=== PATIENT | male | born 1945 | race Hispanic/Latino ===

== ENCOUNTER → 2017-09-10 | Outpatient (CLI) | payer OTHER | END | disposition home or self-care (01) | LOC: RAH 09:28 | PROVIDERS: ATTEND Internal Medicine | DX: I35.0 Nonrheumatic aortic (valve) stenosis (principal); I10 Essential (primary) hypertension; F32.1 Major depressive disorder, single episode, moderate | CPT/HCPCS: 93306 ==

== ENCOUNTER → 2020-09-21 | Outpatient (CLI) | payer OTHER | END | disposition home or self-care (01) | LOC: SHCH 13:04 | PROVIDERS: ATTEND Internal Medicine Cardiovascular Disease | DX: I08.2 Rheumatic disorders of both aortic and tricuspid valves (principal); I10 Essential (primary) hypertension; E66.9 Obesity, unspecified; E78.5 Hyperlipidemia, unspecified; G20 Parkinson's disease | CPT/HCPCS: 93306; 93356 ==

== ENCOUNTER 2020-10-06 07:37 | Day surgery (SDC) | payer OTHER ==
[2020-10-01 11:39] LABS: BASOPHILS % (AUTO) 0.2 % (0.0-5.0); EOSINOPHILS % (AUTO) 3.8 % (0.0-8.0); HEMATOCRIT 34.6 % (42-54); LYMPHOCYTES % (AUTO) 23.4 % (21.0-51.0); MEAN CORPUSCULAR HEMOGLOBIN 27.4 pg (27.0-33.0); MEAN CORPUSCULAR HGB CONC 33.2 g/dL (32.0-36.0); MEAN CORPUSCULAR VOLUME 82.6 fL (79-99); MONOCYTES % (AUTO) 8.6 % (3.0-13.0); NEUTROPHILS % (AUTO) 63.6 % (40.0-77.0); PLATELET COUNT (AUTO) 220 K/uL (130-400); RED BLOOD CELL COUNT(AUTO) 4.19 MIL/uL (4.50-6.20); RED CELL DISTRIBUTION WIDTH 15.1 % (11.0-15.5); WHITE BLOOD COUNT (AUTO) 4.8 K/uL (4.8-10.8)
[2020-10-01 11:51] LABS: CREATININE 1.1 mg/dL (0.5-1.5); POTASSIUM 3.7 mmol/L (3.5-5.1)
[2020-10-01 11:52] LABS: INR 0.99 (0.85-1.15); PROTHROMBIN TIME 10.8 SEC (9.6-11.6)
[2020-10-01 11:54] LABS: PARTIAL THROMBOPLASTIN TIME 37.3 SEC (26.3-35.5)
[~2020-10-06] VITALS: Ht 177.8 cm; Wt 106.0 kg
[2020-10-06] VITALS (9 sets, daily range): BP systolic 115–147; BP diastolic 52–61
[~2020-10-06 07:37] MED LIST: CARB1TAB42 PO; CARBOXYMETHYLCELLULOSE OU; ENTA200T5 PO; LOSA100T58 PO; OXYB5TAB15 PO; PRAV40TA3 PO; RIVA4.6T TD; ROPI4TAB6 PO; SERT-440 PO; vitamin D3 PO
[2020-10-06] MEDS ORDERED: NICARDIPINE HCL 25 MG/10 ML ML IV ONE (08:57)
[2020-10-06] MEDS ORDERED: HEPARIN SODIUM 1000UNIT/ML 10ML VIAL ONE (08:57)
[2020-10-06] MEDS ORDERED: MIDAZOLAM HCL 1 MG/ML 2ML VIAL ONE (08:58)
[2020-10-06] MEDS ORDERED: LIDOCAINE HCL 400MG/20ML VIAL ONE (08:58)
[2020-10-06] MEDS ORDERED: FENTANYL CITRATE PF 50 MCG/1 ML 2ML VIAL ONE (08:58)
[2020-10-06] MEDS ORDERED: NITROGLYCERIN 2 MG/VIAL VIAL IV ONE (08:58)
[2020-10-06] MEDS ORDERED: IOHEXOL 350 MG/ML 100ML INFUS..BTL IV ONE (08:58)
[2020-10-06] MEDS ORDERED: HYDR25TA PO (09:09)
[2020-10-06] MEDS ORDERED: METO-408 PO (09:09)
[2020-10-06] MEDS ORDERED: SODIUM CHLORIDE 0.9% 1000ML 1,000 ML IV ONE (09:33)
[2020-10-06] MEDS ORDERED: IOHEXOL-350 50ML VIAL IV ONE (10:12)
== END 2020-10-06 14:50 | disposition home or self-care (01) ==
LOC: DAH 07:37
PROVIDERS: ATTEND Internal Medicine Cardiovascular Disease
DX: I35.0 Nonrheumatic aortic (valve) stenosis (principal); I25.10 Atherosclerotic heart disease of native coronary artery without angina pectoris; I10 Essential (primary) hypertension; E78.5 Hyperlipidemia, unspecified; G20 Parkinson's disease; Z79.899 Other long term (current) drug therapy; Z79.01 Long term (current) use of anticoagulants; Z98.890 Other specified postprocedural states; Z82.49 Family history of ischemic heart disease and other diseases of the circulatory system; Z80.8 Family history of malignant neoplasm of other organs or systems
CPT/HCPCS: 36415; 71045; 80048; 85025; 85610; 85730; 93005; 93454; A4215; A4216; A4221; A4222; A4223 ×3; A4606; A4663; C1894 ×3; J1644; J2250; J3010; J3490 ×2; J7030; Q9965; Q9967 ×2; 99156; 99157

== ENCOUNTER → 2020-11-22 | Outpatient (CLI) | payer OTHER ==
[~2020-11-22] MED LIST changes: +HYDR25TA PO; +IOHEXOL 350 MG/ML 100ML INFUS..BTL IV ONE; +METO-408 PO
== END | disposition home or self-care (01) ==
LOC: RAH 10:03
PROVIDERS: ATTEND Internal Medicine Cardiovascular Disease
DX: I35.0 Nonrheumatic aortic (valve) stenosis (principal); I70.0 Atherosclerosis of aorta
CPT/HCPCS: 74174; 75574; Q9967

== ENCOUNTER 2021-02-28 15:00 | Inpatient (IN) | payer OTHER ==
[~2021-02-28] VITALS: Ht 177.8 cm; Wt 110.3 kg
[~2021-02-28 15:00] MED LIST changes: -CARBOXYMETHYLCELLULOSE OU; -ENTA200T5 PO; -IOHEXOL 350 MG/ML 100ML INFUS..BTL IV ONE; -OXYB5TAB15 PO; -RIVA4.6T TD; -vitamin D3 PO
[2021-03-11 12:54] LABS: ABG BASE EXCESS 2.8 mmol/L (-2.0-3.0); ABG HCO3 27.2 mmol/L (21.0-28.0); ABG OXYGEN SATURATION 93.8 % (95.0-99.0); ABG PCO2 41 mmHg (35-48)
[2021-03-11 13:03] LABS: BASOPHILS % (AUTO) 0.4 % (0.0-5.0); EOSINOPHILS % (AUTO) 3.3 % (0.0-8.0); HEMATOCRIT 41.9 % (42-54); LYMPHOCYTES % (AUTO) 28.1 % (21.0-51.0); MEAN CORPUSCULAR HEMOGLOBIN 31.9 pg (27.0-33.0); MEAN CORPUSCULAR HGB CONC 35.3 g/dL (32.0-36.0); MEAN CORPUSCULAR VOLUME 90.3 fL (79-99); MONOCYTES % (AUTO) 8.5 % (3.0-13.0); NEUTROPHILS % (AUTO) 59.5 % (40.0-77.0); PLATELET COUNT (AUTO) 173 K/uL (130-400); RED BLOOD CELL COUNT(AUTO) 4.64 MIL/uL (4.50-6.20); RED CELL DISTRIBUTION WIDTH 13.8 % (11.0-15.5); WHITE BLOOD COUNT (AUTO) 4.8 K/uL (4.8-10.8)
[2021-03-11 13:16] LABS: INR 0.98 (0.85-1.15); PROTHROMBIN TIME 10.7 SEC (9.6-11.6)
[2021-03-11 13:18] LABS: PARTIAL THROMBOPLASTIN TIME 37.2 SEC (26.3-35.5)
[2021-03-11 13:35] LABS: HEMOGLOBIN A1C 5.8 % (4.0-6.0)
[2021-03-11 18:20] VITALS: BP 160/74
[2021-03-11] MEDS ORDERED: MEMA10TA55 PO (18:42)
[2021-03-11] MEDS ORDERED: FOLI1 PO (18:42)
[2021-03-11] MEDS ORDERED: CYAN-52 PO (18:42)
[2021-03-14] VITALS (16 sets, daily range): BP systolic 98–195; BP diastolic 42–78
[2021-03-14] MEDS ORDERED: NOREPINEPHRINE BITARTRATE 8 MG in DEXTROSE 5%-WATER 250 ML IV PRN (08:30)
[2021-03-14] MEDS ORDERED: AMINOCAPROIC ACID 5,000MG VIAL 15,000 MG in 0.9% NACL 500ML IV.SOLN 420 ML IV PRN (08:30)
[2021-03-14] MEDS ORDERED: EPINEPHRINE PF 1MG AMP 10 MG in 0.9% NACL 250ML 240 ML IV PRN (08:30)
[2021-03-14] MEDS ORDERED: LACTATED RINGERS 1000ML 1,000 ML IV ONE (10:46)
[2021-03-14] MEDS ORDERED: CEFAZOLIN SODIUM 1 GM VIAL ONE ×3 (10:46→19:29)
[2021-03-14] MEDS ORDERED: NITROGLYCERIN 50MG/D5W 250ML 1 BOT ONE (11:01)
[2021-03-14] MEDS ORDERED: METOPROLOL TARTRATE 25 MG TAB ONE (11:25)
[2021-03-14] MEDS: CEFAZOLIN SODIUM 1 GM VIAL IVP ONE ×2 (12:00→12:20)
[2021-03-14] MEDS ORDERED: AMINOCAPROIC ACID 5,000MG VIAL ONE (12:17)
[2021-03-14] MEDS ORDERED: PROTAMINE SULFATE 10 MG/ML 25ML VIAL IV ONE ×2 (12:17→15:39)
[2021-03-14] MEDS ORDERED: NOREPINEPHRINE BITARTRATE 1 MG/1 ML ML IV ONE (12:17)
[2021-03-14] MEDS ORDERED: EPINEPHRINE PF 1MG AMP ONE (12:17)
[2021-03-14] MEDS ORDERED: ESMOLOL HCL 10 MG/ML 10 ML VIAL ONE (12:17)
[2021-03-14] MEDS ORDERED: HEPARIN 10,000 UNIT/10ML (1,000 UNIT/ML) VIAL ONE (12:17)
[2021-03-14] MEDS ORDERED: LIDOCAINE PF 100MG/5ML (2%) SYRINGE 5ML ONE (12:17)
[2021-03-14] MEDS ORDERED: SODIUM BICARB 50MEQ 50ML VIAL 150 ML ONE (12:17)
[2021-03-14] MEDS ORDERED: FENTANYL CITRATE PF 50 MCG/1 ML 20ML VIAL IJ ONE (12:17)
[2021-03-14] MEDS ORDERED: MIDAZOLAM HCL 1 MG/ML 2ML VIAL ONE ×2 (12:18→15:00)
[2021-03-14] MEDS ORDERED: ROCURONIUM 10MG/1ML SYR 10 MG/ML ML ONE (12:18)
[2021-03-14] MEDS ORDERED: PROPOFOL 10 MG/ML 20ML VIAL IV ONE (12:18)
[2021-03-14] MEDS ORDERED: KETAMINE 50MG/ML SYRINGE 50 MG/ML DISP.SYRIN IV ONE (12:19)
[2021-03-14] MEDS ORDERED: DELNIDO FORMULA 2 BAG IV ONE (12:46)
[2021-03-14 13:24] LABS: ABG BASE EXCESS 0.4 mmol/L (-2.0-3.0); ABG HCO3 24.5 mmol/L (21.0-28.0); ABG OXYGEN SATURATION 99.6 % (95.0-99.0); ABG PCO2 38 mmHg (35-48)
[2021-03-14] MEDS ORDERED: PHENYLEPHRINE HCL 10 MG/ML 1ML VIAL IV ONE (14:00)
[2021-03-14] MEDS ORDERED: SODIUM BICARB 8.4% 50ML SYRINGE IVP ONE (14:00)
[2021-03-14] MEDS ORDERED: CACL 1GM SYG IVP ONE (14:00)
[2021-03-14] MEDS ORDERED: HEPARIN 10,000 UNIT/10ML (1,000 UNIT/ML) VIAL IV ONE (14:00)
[2021-03-14] MEDS ORDERED: AMINOCAPROIC ACID 5,000MG VIAL IV ONE (14:00)
[2021-03-14] MEDS ORDERED: LIDOCAINE PF 100MG/5ML (2%) SYRINGE 5ML IVP ONE (14:00)
[2021-03-14] MEDS ORDERED: ALBUMIN (HUMAN) 25% 50 ML IV ONE (14:00)
[2021-03-14] MEDS ORDERED: MANNITOL 25% 50ML VIAL IV ONE (14:00)
[2021-03-14] MEDS ORDERED: MAGNESIUM SULFATE 1 GM/2 ML VIAL IM ONE (14:00)
[2021-03-14] MEDS ORDERED: ROPIVACAINE 0.2% 2MG/ML 100ML VIAL IJ ONE (14:00)
[2021-03-14 14:03] LABS: ABG BASE EXCESS -2.9 mmol/L (-2.0-3.0); ABG HCO3 22.2 mmol/L (21.0-28.0); ABG OXYGEN SATURATION 98.8 % (95.0-99.0); ABG PCO2 40 mmHg (35-48)
[2021-03-14] MEDS ORDERED: KETAMINE HCL 100 MG/ML 5ML VIAL IJ ONE (14:03)
[2021-03-14] MEDS ORDERED: ROPIVACAINE 0.5% 5MG/ML 30ML IJ ONE (14:08)
[2021-03-14 14:36] LABS: ABG BASE EXCESS -4.6 mmol/L (-2.0-3.0); ABG HCO3 20.2 mmol/L (21.0-28.0); ABG OXYGEN SATURATION 98.1 % (95.0-99.0); ABG PCO2 37 mmHg (35-48)
[2021-03-14 15:20] LABS: ABG BASE EXCESS 0.4 mmol/L (-2.0-3.0); ABG HCO3 24.8 mmol/L (21.0-28.0); ABG OXYGEN SATURATION 97.2 % (95.0-99.0); ABG PCO2 39 mmHg (35-48)
[2021-03-14] MEDS ORDERED: ALBUMIN (HUMAN) 5% 250 ML IV PRN (15:30)
[2021-03-14] MEDS ORDERED: POTASSIUM PHOS 15 mMOL+NS250ML 250 ML IV PRN (15:30)
[2021-03-14] MEDS ORDERED: MAGNESIUM 2GM PREMIX 50ML 50 ML IV PRN (15:30)
[2021-03-14] MEDS ORDERED: EPINEPHRINE PF 1MG AMP 10 MG in DEXTROSE 5%-WATER 250 ML IV PRN (15:30)
[2021-03-14] MEDS ORDERED: 0.9% NACL 500ML IV.SOLN 500 ML IV SCH (15:30)
[2021-03-14] MEDS ORDERED: INSULIN REGULAR, HUMAN 3ML 100 UNIT in 0.9%NACL 100ML 99 ML IV SCH ×2 (15:30)
[2021-03-14] MEDS ORDERED: ACETAMINOPHEN 650 MG SUPPOSITORY RC PRN (15:30)
[2021-03-14] MEDS ORDERED: DEXTROSE 50%-WATER 50 ML DISP.SYRIN IV PRN (15:30)
[2021-03-14] MEDS ORDERED: PROPOFOL 1000 MG/100 ML 100 ML IV PRN (15:30)
[2021-03-14] MEDS ORDERED: ONDANSETRON 4MG INJ IV PRN (15:30)
[2021-03-14] MEDS ORDERED: 0.9%NACL 10ML VIAL IVP PRN (15:30)
[2021-03-14] MEDS ORDERED: NITROGLYCERIN 50MG/D5W 250ML 250 BOT IV SCH (15:30)
[2021-03-14] MEDS ORDERED: GLUCAGON 1MG KIT 1 MG ML IM PRN (15:30)
[2021-03-14] MEDS ORDERED: 0.9%NACL 1000ML 1,000 ML IV SCH (15:30)
[2021-03-14] MEDS ORDERED: NOREPINEPHRIN 4MG/NS 250ML 250 ML IV PRN (15:30)
[2021-03-14] MEDS ORDERED: AMINOCAPROIC ACID 5,000MG VIAL 15,000 MG in 0.9% NACL 250ML 250 ML IV SCH (15:30)
[2021-03-14] MEDS ORDERED: MORPHINE 2 MG SYG IV PRN ×2 (15:30)
[2021-03-14 16:07] LABS: HEMATOCRIT 32.1 % (42-54); MEAN CORPUSCULAR HEMOGLOBIN 32.2 pg (27.0-33.0); MEAN CORPUSCULAR HGB CONC 35.2 g/dL (32.0-36.0); MEAN CORPUSCULAR VOLUME 91.5 fL (79-99); RED BLOOD CELL COUNT(AUTO) 3.51 MIL/uL (4.50-6.20); RED CELL DISTRIBUTION WIDTH 13.7 % (11.0-15.5); WHITE BLOOD COUNT (AUTO) 13.5 K/uL (4.8-10.8)
[2021-03-14 16:13] LABS: ABG BASE EXCESS -3.4 mmol/L (-2.0-3.0); ABG HCO3 22.6 mmol/L (21.0-28.0); ABG OXYGEN SATURATION 94.4 % (95.0-99.0); ABG PCO2 45 mmHg (35-48)
[2021-03-14 16:20] LABS: INR 1.18 (0.85-1.15); PROTHROMBIN TIME 12.7 SEC (9.6-11.6)
[2021-03-14 16:22] LABS: CREATININE 1.3 mg/dL (0.5-1.5); MAGNESIUM 2.5 mg/dL (1.80-2.40); PARTIAL THROMBOPLASTIN TIME 34.7 SEC (26.3-35.5); PHOSPHORUS 4.3 mg/dL (2.5-4.9); POTASSIUM 3.3 mmol/L (3.5-5.1)
[2021-03-14] MEDS: POTASSIUM CHLORIDE 20MEQ/100ML 100 ML IV PRN ×2 (16:22→21:00)
[2021-03-14] MEDS: SODIUM BICARB 50MEQ 50ML VIAL IV PRN ×5 (16:57→22:32)
[2021-03-14] MEDS: 0.2% ROPIVACAINE 600ML Q-PUMP MISC SCH (17:07)
[2021-03-14 17:15] LABS: ABG BASE EXCESS 1.9 mmol/L (-2.0-3.0); ABG HCO3 27.4 mmol/L (21.0-28.0); ABG OXYGEN SATURATION 93.9 % (95.0-99.0); ABG PCO2 47 mmHg (35-48)
[2021-03-14] MEDS: CALCIUM GLUC 1GM 1 GM in 0.9%NACL 50ML 50 ML IV PRN ×3 (18:08→22:32)
[2021-03-14 18:22] LABS: ABG BASE EXCESS -2.3 mmol/L (-2.0-3.0); ABG HCO3 23.2 mmol/L (21.0-28.0); ABG PCO2 43 mmHg (35-48)
[2021-03-14 19:32] LABS: ABG BASE EXCESS -2.1 mmol/L (-2.0-3.0); ABG HCO3 23.1 mmol/L (21.0-28.0); ABG OXYGEN SATURATION 97.2 % (95.0-99.0); ABG PCO2 41 mmHg (35-48)
[2021-03-14] MEDS ORDERED: CALCIUM GLUC 1GM/10ML VIAL ONE ×3 (19:50→22:29)
[2021-03-14] MEDS: CEFAZOLIN SODIUM 1 GM VIAL IV SCH (20:18)
[2021-03-14 20:24] LABS: ABG HCO3 22.6 mmol/L (21.0-28.0); ABG OXYGEN SATURATION 97.1 % (95.0-99.0); ABG PCO2 38 mmHg (35-48)
[2021-03-14 20:41] LABS: ABG HCO3 23.1 mmol/L (21.0-28.0); ABG OXYGEN SATURATION 96.8 % (95.0-99.0); ABG PCO2 37 mmHg (35-48)
[2021-03-14] MEDS: FAMOTIDINE 20MG VIAL IV SCH (21:03)
[2021-03-14 22:22] LABS: ABG BASE EXCESS -1.8 mmol/L (-2.0-3.0); ABG OXYGEN SATURATION 96.2 % (95.0-99.0); ABG PCO2 39 mmHg (35-48)
[2021-03-14] MEDS: ATORVASTATIN 10 MG TABLET PO SCH (22:23)
[2021-03-14] MEDS: MEMANTINE HCL 5 MG TABLET PO SCH (22:24)
[2021-03-14] MEDS: TRAMADOL HCL 50 MG TABLET PO PRN (22:40)
[2021-03-15] VITALS (25 sets, daily range): BP systolic 93–269; BP diastolic 44–268
[2021-03-15 03:47] LABS: ABG BASE EXCESS 3.6 mmol/L (-2.0-3.0); ABG HCO3 27.3 mmol/L (21.0-28.0); ABG OXYGEN SATURATION 94.8 % (95.0-99.0); ABG PCO2 38 mmHg (35-48)
[2021-03-15] MEDS ORDERED: CALCIUM GLUC 1GM/10ML VIAL ONE (03:50)
[2021-03-15] MEDS: CEFAZOLIN SODIUM 1 GM VIAL IV SCH ×2 (03:53→13:09)
[2021-03-15] MEDS: CALCIUM GLUC 1GM 1 GM in 0.9%NACL 50ML 50 ML IV PRN (03:53)
[2021-03-15 04:04] LABS: HEMATOCRIT 31.1 % (42-54); MEAN CORPUSCULAR HEMOGLOBIN 32.3 pg (27.0-33.0); MEAN CORPUSCULAR VOLUME 92.3 fL (79-99); RED BLOOD CELL COUNT(AUTO) 3.37 MIL/uL (4.50-6.20); RED CELL DISTRIBUTION WIDTH 14.3 % (11.0-15.5); WHITE BLOOD COUNT (AUTO) 9.5 K/uL (4.8-10.8)
[2021-03-15 04:23] LABS: CREATININE 1.8 mg/dL (0.5-1.5); MAGNESIUM 2.1 mg/dL (1.80-2.40); PHOSPHORUS 3.9 mg/dL (2.5-4.9); POTASSIUM 4.2 mmol/L (3.5-5.1)
[2021-03-15] MEDS: FAMOTIDINE 20MG VIAL IV SCH ×2 (07:41→20:42)
[2021-03-15] MEDS: SERTRALINE HCL 50 MG TABLET PO SCH (07:41)
[2021-03-15] MEDS: TRAMADOL HCL 50 MG TABLET PO PRN ×3 (07:41→17:56)
[2021-03-15] MEDS: CARBIDOPA/LEVODOPA ER 50-200 1 EACH TABLET.ER PO SCH ×3 (07:51→20:43)
[2021-03-15] MEDS: ASPIRIN 81MG CHEW TAB PO SCH (13:00)
[2021-03-15] MEDS ORDERED: ASPIRIN 81MG CHEW TAB ONE (13:01)
[2021-03-15] MEDS: FOLIC ACID 1 MG TABLET PO SCH (13:07)
[2021-03-15] MEDS: 0.2% ROPIVACAINE 600ML Q-PUMP MISC SCH (15:00)
[2021-03-15] MEDS: FUROSEMIDE 20MG VIAL IV SCH (16:53)
[2021-03-15] MEDS: MEMANTINE HCL 5 MG TABLET PO SCH (20:42)
[2021-03-15] MEDS: ATORVASTATIN 10 MG TABLET PO SCH (20:45)
[2021-03-16] VITALS (43 sets, daily range): BP systolic 84–160; BP diastolic 38–96
[2021-03-16] MEDS: ACETAMINOPHEN 325 MG TAB PO PRN ×2 (01:08→21:21)
[2021-03-16] MEDS: CARBIDOPA/LEVODOPA ER 50-200 1 EACH TABLET.ER PO SCH ×4 (01:08→22:16)
[2021-03-16] MEDS: TRAMADOL HCL 50 MG TABLET PO PRN ×2 (02:12→12:16)
[2021-03-16] MEDS: FUROSEMIDE 20MG VIAL IV SCH (04:35)
[2021-03-16 05:18] LABS: HEMATOCRIT 30.2 % (42-54); MEAN CORPUSCULAR HEMOGLOBIN 32.2 pg (27.0-33.0); MEAN CORPUSCULAR HGB CONC 34.1 g/dL (32.0-36.0); MEAN CORPUSCULAR VOLUME 94.4 fL (79-99); RED BLOOD CELL COUNT(AUTO) 3.2 MIL/uL (4.50-6.20); RED CELL DISTRIBUTION WIDTH 14.1 % (11.0-15.5); WHITE BLOOD COUNT (AUTO) 9.4 K/uL (4.8-10.8)
[2021-03-16 05:28] LABS: CREATININE 1.5 mg/dL (0.5-1.5); POTASSIUM 3.9 mmol/L (3.5-5.1)
[2021-03-16] MEDS: ASPIRIN 81MG CHEW TAB PO SCH (08:06)
[2021-03-16] MEDS: SERTRALINE HCL 50 MG TABLET PO SCH (08:07)
[2021-03-16] MEDS: FAMOTIDINE 20MG VIAL IV SCH ×2 (08:07→21:21)
[2021-03-16] MEDS: FUROSEMIDE 20 MG TABLET PO SCH ×3 (09:40→21:21)
[2021-03-16] MEDS: FOLIC ACID 1 MG TABLET PO SCH (11:06)
[2021-03-16] MEDS: ATORVASTATIN 10 MG TABLET PO SCH (21:21)
[2021-03-16] MEDS: MEMANTINE HCL 5 MG TABLET PO SCH (21:21)
[2021-03-16 21:48] LABS: MAGNESIUM 2.2 mg/dL (1.80-2.40); PHOSPHORUS 3.4 mg/dL (2.5-4.9); POTASSIUM 3.8 mmol/L (3.5-5.1)
[2021-03-16] MEDS ORDERED: CALCIUM GLUC 1GM/10ML VIAL ONE (22:14)
[2021-03-16] MEDS ORDERED: KCL 20 MEQ ERTAB PO ONE (22:14)
[2021-03-16] MEDS: CALCIUM GLUC 1GM 1 GM in 0.9%NACL 50ML 50 ML IV PRN (22:17)
[2021-03-16] MEDS ORDERED: KCL 20 MEQ ERTAB PO PRN (22:30)
[2021-03-16] MEDS ORDERED: POTASSIUM CHLORIDE 10% ELIXIR 20 MEQ/15 ML UDCUP PO PRN (22:30)
[2021-03-17 00:02] VITALS: BP 123/68
[2021-03-17] MEDS ORDERED: AMIODARONE 900MG VIAL IV ONE (00:17)
[2021-03-17] MEDS ORDERED: AMIODARONE 150MG VIAL ONE (00:17)
[2021-03-17] MEDS ORDERED: DEXTROSE 5%-WATER 500 ML IV ONE (00:19)
[2021-03-17] MEDS ORDERED: AMIODARONE 900MG VIAL 360 MG in DEXTROSE 5%-WATER 200 ML IV SCH (00:30)
[2021-03-17] MEDS ORDERED: AMIODARONE 900MG VIAL 150 MG in DEXTROSE 5%-WATER 100 ML IV SCH (00:30)
[2021-03-17] MEDS: CARBIDOPA/LEVODOPA ER 50-200 1 EACH TABLET.ER PO SCH ×4 (03:00→20:29)
[2021-03-17 03:54] LABS: HEMATOCRIT 27.9 % (42-54); MEAN CORPUSCULAR HEMOGLOBIN 32.6 pg (27.0-33.0); MEAN CORPUSCULAR HGB CONC 34.1 g/dL (32.0-36.0); MEAN CORPUSCULAR VOLUME 95.9 fL (79-99); RED BLOOD CELL COUNT(AUTO) 2.91 MIL/uL (4.50-6.20); RED CELL DISTRIBUTION WIDTH 13.8 % (11.0-15.5); WHITE BLOOD COUNT (AUTO) 8.5 K/uL (4.8-10.8)
[2021-03-17 04:02] VITALS: BP 97/50
[2021-03-17 04:08] LABS: CREATININE 1.4 mg/dL (0.5-1.5); POTASSIUM 3.8 mmol/L (3.5-5.1)
[2021-03-17 06:02] VITALS: BP 107/46
[2021-03-17] MEDS: AMIODARONE 900MG VIAL 540 MG in DEXTROSE 5%-WATER 300 ML IV SCH (06:47)
[2021-03-17 07:28] VITALS: BP 94/51
[2021-03-17] MEDS: ASPIRIN 81MG CHEW TAB PO SCH (07:55)
[2021-03-17] MEDS: FUROSEMIDE 20 MG TABLET PO SCH ×3 (07:55→20:28)
[2021-03-17] MEDS: SERTRALINE HCL 50 MG TABLET PO SCH (07:56)
[2021-03-17] MEDS: FAMOTIDINE 20MG VIAL IV SCH ×2 (07:56→20:28)
[2021-03-17] MEDS ORDERED: FUROSEMIDE 20 MG TABLET PO SCH (09:00)
[2021-03-17 11:40] VITALS: BP 102/49
[2021-03-17] MEDS: FOLIC ACID 1 MG TABLET PO SCH (13:16)
[2021-03-17] MEDS: MEMANTINE HCL 5 MG TABLET PO SCH (20:29)
[2021-03-17] MEDS: ATORVASTATIN 10 MG TABLET PO SCH (20:29)
[2021-03-17 23:37] VITALS: BP 123/50
[2021-03-18] MEDS: AMIODARONE 900MG VIAL 540 MG in DEXTROSE 5%-WATER 300 ML IV SCH (01:17)
[2021-03-18] MEDS: CARBIDOPA/LEVODOPA ER 50-200 1 EACH TABLET.ER PO SCH ×4 (02:56→20:00)
[2021-03-18 04:04] VITALS: BP 145/63
[2021-03-18 04:12] LABS: HEMATOCRIT 29.5 % (42-54); MEAN CORPUSCULAR HEMOGLOBIN 32.5 pg (27.0-33.0); MEAN CORPUSCULAR HGB CONC 34.2 g/dL (32.0-36.0); MEAN CORPUSCULAR VOLUME 94.9 fL (79-99); RED BLOOD CELL COUNT(AUTO) 3.11 MIL/uL (4.50-6.20); RED CELL DISTRIBUTION WIDTH 13.6 % (11.0-15.5); WHITE BLOOD COUNT (AUTO) 7.9 K/uL (4.8-10.8)
[2021-03-18 04:30] LABS: CREATININE 1.3 mg/dL (0.5-1.5); POTASSIUM 3.7 mmol/L (3.5-5.1)
[2021-03-18 08:30] VITALS: BP 135/66
[2021-03-18] MEDS: ASPIRIN 81MG CHEW TAB PO SCH (08:37)
[2021-03-18] MEDS: SERTRALINE HCL 50 MG TABLET PO SCH (08:37)
[2021-03-18] MEDS: FAMOTIDINE 20MG VIAL IV SCH ×2 (08:38→21:00)
[2021-03-18] MEDS: FUROSEMIDE 20 MG TABLET PO SCH ×3 (08:38→21:00)
[2021-03-18] MEDS ORDERED: AMIODARONE 200 MG TABLET PO ONE (09:30)
[2021-03-18] MEDS: AMIODARONE 200 MG TABLET PO SCH ×2 (10:19→21:00)
[2021-03-18 11:35] VITALS: BP 121/57
[2021-03-18] MEDS: FOLIC ACID 1 MG TABLET PO SCH (13:23)
[2021-03-18] MEDS ORDERED: OXYB5TAB15 PO (13:45)
[2021-03-18 15:56] VITALS: BP 134/58
[2021-03-18] MEDS: ATORVASTATIN 10 MG TABLET PO SCH (21:00)
[2021-03-18] MEDS: MEMANTINE HCL 5 MG TABLET PO SCH (21:00)
== END 2021-03-18 23:30 | DRG 219 ==
LOC: DAHIP 03-14 10:12 → 2CV 03-14 15:11 → 2CH 03-15 06:35 → 2DH 03-17 06:48
PROVIDERS: ADMIT Thoracic Surgery (Cardiothoracic Vascular Surgery); ATTEND Thoracic Surgery (Cardiothoracic Vascular Surgery)
PROC: 5A1221Z Performance of Cardiac Output, Continuous (ICD-10-PCS; 2021-03-14)
PROC: B24BZZ4 Ultrasonography of Heart with Aorta, Transesophageal (ICD-10-PCS; 2021-03-14)
PROC: 02RF08Z Replacement of Aortic Valve with Zooplastic Tissue, Open Approach (ICD-10-PCS; principal; 2021-03-14 11:00)
DX: I35.2 Nonrheumatic aortic (valve) stenosis with insufficiency (principal); I50.33 Acute on chronic diastolic (congestive) heart failure; D62 Acute posthemorrhagic anemia; G20 Parkinson's disease; I25.10 Atherosclerotic heart disease of native coronary artery without angina pectoris; E78.5 Hyperlipidemia, unspecified; E78.00 Pure hypercholesterolemia, unspecified; Z20.822 Contact with and (suspected) exposure to COVID-19; I48.91 Unspecified atrial fibrillation; Z79.82 Long term (current) use of aspirin; Z79.899 Other long term (current) drug therapy; Z99.3 Dependence on wheelchair; Z88.8 Allergy status to other drugs, medicaments and biological substances; Z80.0 Family history of malignant neoplasm of digestive organs; Z82.49 Family history of ischemic heart disease and other diseases of the circulatory system; I11.0 Hypertensive heart disease with heart failure
CPT/HCPCS: 36415; 36600; 71045; 71046; 80048; 80061; 82330; 82435; 82803; 82947; 82948; 83036; 83605; 83735; 84100; 84132; 84295; 85018; 85025; 85027; 85347; 85610; 85730; 86850; 86900; 86901; 86923; 87635; 88305; 88311; 93005; 93313; 93318; 93880; 94002; 94010; 94150; 97039; A4357; A7048; G0378; J0171; J0282; J0610; J0690; J1644; J1815; J1940; J2001; J2150; J2250; J2370; J2405; J2704; J2720; J2795; J3010; J3475; J3480; J3490; J7030; J7040; J7060; J7120; P9047

== ENCOUNTER 2021-12-08 17:15 | Emergency (ER) | payer OTHER ==
[~2021-12-08] VITALS: Ht 172.7 cm; Wt 107.0 kg
[~2021-12-08 17:15] MED LIST changes: +CYAN-52 PO; +FOLI1 PO; +MEMA10TA55 PO; +OXYB5TAB15 PO
[2021-12-08] MEDS ORDERED: CEFTRIAXONE 1G VIAL IVP ONE (19:00)
[2021-12-08 19:08] LABS: BASOPHILS % (AUTO) 0.4 % (0.0-5.0); EOSINOPHILS % (AUTO) 4.5 % (0.0-8.0); HEMATOCRIT 37.3 % (42-54); LYMPHOCYTES % (AUTO) 25.2 % (21.0-51.0); MEAN CORPUSCULAR HEMOGLOBIN 31.4 pg (27.0-33.0); MEAN CORPUSCULAR HGB CONC 35.1 g/dL (32.0-36.0); MEAN CORPUSCULAR VOLUME 89.4 fL (79-99); MONOCYTES % (AUTO) 9.2 % (3.0-13.0); NEUTROPHILS % (AUTO) 60.3 % (40.0-77.0); PLATELET COUNT (AUTO) 175 K/uL (130-400); RED BLOOD CELL COUNT(AUTO) 4.17 MIL/uL (4.50-6.20); RED CELL DISTRIBUTION WIDTH 14.3 % (11.0-15.5); WHITE BLOOD COUNT (AUTO) 4.7 K/uL (4.8-10.8)
[2021-12-08 19:13] LABS: CREATININE 1.2 mg/dL (0.5-1.5); POTASSIUM 3.9 mmol/L (3.5-5.1)
[2021-12-08 19:17] LABS: ALBUMIN 3.5 g/dL (3.5-5.0); TOTAL PROTEIN, SERUM 6.8 g/dL (6.0-8.3)
[2021-12-08] MEDS ORDERED: CEFD300C3 PO (19:41)
[2021-12-08 19:45] VITALS: BP 153/68
== END 2021-12-08 20:04 | disposition home or self-care (01) ==
LOC: EDH 17:15
DX: L03.115 Cellulitis of right lower limb (principal); E78.00 Pure hypercholesterolemia, unspecified; I10 Essential (primary) hypertension; I25.10 Atherosclerotic heart disease of native coronary artery without angina pectoris; Z79.899 Other long term (current) drug therapy; Z88.8 Allergy status to other drugs, medicaments and biological substances
CPT/HCPCS: 99284; 96374; 93971; 80053; 85025; 87040 ×2; 83605; 36415; J0696

== ENCOUNTER → 2022-04-08 | Outpatient (CLI) | payer OTHER ==
[~2022-04-08] MED LIST changes: +CEFD300C3 PO
== END | disposition home or self-care (01) ==
LOC: SHCH 08:41
PROVIDERS: ATTEND Internal Medicine Cardiovascular Disease
DX: I87.2 Venous insufficiency (chronic) (peripheral) (principal); I82.401 Acute embolism and thrombosis of unspecified deep veins of right lower extremity; I10 Essential (primary) hypertension; I35.9 Nonrheumatic aortic valve disorder, unspecified; I48.0 Paroxysmal atrial fibrillation; G20 Parkinson's disease
CPT/HCPCS: 93970

== ENCOUNTER → 2022-10-25 | Outpatient (CLI) | payer OTHER ==
[~2022-10-25] MED LIST changes: -LOSA100T58 PO; +LOSA100T59 PO; +ROPI4TAB41 PO; -ROPI4TAB6 PO
== END | disposition home or self-care (01) ==
LOC: SHCH 13:40
PROVIDERS: ATTEND Internal Medicine Cardiovascular Disease
DX: I08.1 Rheumatic disorders of both mitral and tricuspid valves (principal); I11.9 Hypertensive heart disease without heart failure; E78.5 Hyperlipidemia, unspecified; Z95.3 Presence of xenogenic heart valve
CPT/HCPCS: 93306